=== PATIENT | female | born 1945 | race Caucasian/White ===

== ENCOUNTER 2016-07-30 04:27 | Emergency (ER) | payer SELFPAY ==
[2016-07-30 06:14] VITALS: BP 122/68
== END 2016-07-30 06:14 | disposition home or self-care (01) ==
LOC: ED 04:27
DX: S01.81XA Laceration without foreign body of other part of head, initial encounter (principal); I10 Essential (primary) hypertension; E11.9 Type 2 diabetes mellitus without complications; W22.8XXA Striking against or struck by other objects, initial encounter; Y93.89 Activity, other specified; Y92.002 Bathroom of unspecified non-institutional (private) residence as the place of occurrence of the external cause; Y99.8 Other external cause status
CPT/HCPCS: 90715; J2001

== ENCOUNTER 2016-07-31 19:43 | Emergency (ER) | payer SELFPAY ==
[2016-07-31 21:24] LABS: PLATELET COUNT 168 x10^3mcL (130-400); RED CELL DISTRIBUTION WIDTH 13.8 % (11.5-14.5)
[2016-07-31 21:45] LABS: CARBON DIOXIDE 21.7 mmol/L (21-32); CREATININE SERUM 1.6 mg/dL (0.6-1.0); POTASSIUM SERUM 3.3 mmol/L (3.5-5.1)
[2016-07-31 21:50] LABS: BILIRUBIN TOTAL 0.38 mg/dL (0.20-1.00); TOTAL PROTEIN, SERUM 7.4 g/dL (6.4-8.2)
[2016-07-31 21:52] LABS: ALBUMIN 3.1 g/dL (3.4-5.0)
[2016-07-31 21:54] LABS: BASOPHIL 0 % (0-2)
[2016-07-31 21:56] LABS: BAND NEUTROPHIL 7 % (0-10); PLATELET MORPHOLOGY PLATELETS NORMAL; SEGMENTED NEUTROPHILS 91 % (37-75)
[2016-08-01 00:38] LABS: microscopic required? YES; urine erythrocyte 2+ (NEGATIVE)
[2016-08-01 02:24] LABS: MAGNESIUM 1.6 mg/dL (1.8-2.4); PHOSPHOROUS 1.7 mg/dL (2.5-4.9)
[2016-08-01 02:27] LABS: CHOLESTEROL/HDL RATIO 2.5
[2016-08-01 02:31] LABS: AMPHETAMINE QUAL UR NONE DETECTED (NEG <=1000)
[2016-08-01 02:34] LABS: FREE T4 1.55 ng/dL (0.76-1.46); FREE THYROXINE INDEX 3.5 ug/dL (1.4-4.5); T4(THYROXINE) 9.6 ug/dL (4.7-13.3)
[2016-08-01 02:39] LABS: T3 TOTAL 0.82 ng/mL
[2016-08-01 05:10] LABS: PLATELET COUNT 158 x10^3mcL (130-400); RED CELL DISTRIBUTION WIDTH 13.7 % (11.5-14.5)
[2016-08-01 05:14] LABS: BASOPHIL % 0 % (0-2)
[2016-08-01 05:18] LABS: CREATININE SERUM 1.3 mg/dL (0.6-1.0); POTASSIUM SERUM 4.2 mmol/L (3.5-5.1)
[2016-08-01 05:24] LABS: ALBUMIN 2.4 g/dL (3.4-5.0)
[2016-08-01 12:16] LABS: PLATELET COUNT 136 x10^3mcL (130-400); RED CELL DISTRIBUTION WIDTH 13.8 % (11.5-14.5)
[2016-08-01 12:31] LABS: MAGNESIUM 2.5 mg/dL (1.8-2.4); PHOSPHOROUS 2.2 mg/dL (2.5-4.9)
[2016-08-01 13:04] LABS: BAND NEUTROPHIL 24 % (0-10); MONOCYTE 4 % (0-7); SEGMENTED NEUTROPHILS 67 % (37-75)
[2016-08-01 13:05] LABS: rbc morphology (normal/abnorm) NORMAL (NORMAL)
[2016-08-01 14:46] VITALS: BP 142/68
== END 2016-08-01 14:46 | disposition home or self-care (01) ==
LOC: ED 19:43
PROVIDERS: Emergency Medicine; Family Medicine
DX: N12 Tubulo-interstitial nephritis, not specified as acute or chronic (principal); A41.9 Sepsis, unspecified organism; R65.20 Severe sepsis without septic shock; E87.6 Hypokalemia; I10 Essential (primary) hypertension; E11.9 Type 2 diabetes mellitus without complications; Z79.84 Long term (current) use of oral hypoglycemic drugs; Z79.899 Other long term (current) drug therapy
CPT/HCPCS: 82962; 83880; 84439; J0696; J1815; J3475; J7030; J7040